=== PATIENT | male | born 1990 | race Hispanic/Latino ===

== ENCOUNTER 2018-01-13 16:41 | Emergency (ER) | payer SELFPAY ==
[2018-01-13 17:08] VITALS: BP 156/86
--- NOTE | 2018-01-13 17:54 | XRay Report ---
FINAL REPORT EXAM: XR ANKLE 3+V RT HISTORY: BRUISING/PAIN/SWELLING R/T INJURY TECHNIQUE: Three views right ankle PRIORS: None. FINDINGS: No fracture is identified. No dislocation seen. Ankle mortise is intact no evidence of joint space widening. There is lateral soft tissue swelling No erosive or degenerative changes are identified. No evidence of joint effusion. IMPRESSION: Lateral soft tissue swelling No acute fracture identified
[2018-01-13] MEDS ORDERED: MOTRIN PO ONE (19:44)
[2018-01-13] MEDS ORDERED: NORCO 5/325 PO ONE (19:44)
--- NOTE | 2018-01-13 19:51 | Emergency Department Report ---
ED Extremity Problem HPI - General Chief complaint: Extremity Injury, Lower Stated complaint: RT ANKLE BROKE? Time Seen by Provider: 01/13/18 19:35 Source: patient Mode of arrival: Ambulatory Limitations: No Limitations - History of Present Illness Initial comments: Patient is a 27-year-old male who jumped off a porch and twisted his right ankle. Patient states he has 10 out 10 pain was in the lateral right ankle. There is significant bruising present. This occurred several hours ago. Patient has been having difficulty ambulating secondary to his injury. Patient denies any other injury at this time. Quality: aching Consistency: constant Improves with: nothing Worsens with: weight bearing - Related Data Previous Rx's Medication Instructions Recorded Last Taken Type HYDROcodone/APAP 5-325 [[place] 1 each PO Q6HR PRN #15 tablet 01/13/18 Unknown Rx 5/325] Ibuprofen [Motrin] 800 mg PO Q8HR PRN #20 tablet 01/13/18 Unknown Rx Allergies Allergy/AdvReac Type Severity Reaction Status Date / Time No Known Allergies Allergy Unverified 01/13/18 17:08 ED Review of Systems ROS: Stated complaint: RT ANKLE BROKE? Other details as noted in HPI Comment: All other systems reviewed and negative ED Past Medical Hx - Past Medical History Previous Medical History?: No - Surgical History Past Surgical History?: Yes Additional Surgical History: LEFT FOREARM - Social History Smoking Status: Current Every Day Smoker Substance Use Type: Alcohol - Medications Home Medications: Home Medications Medication Instructions Recorded Confirmed Last Taken Type HYDROcodone/APAP 5-325 [[place] 1 each PO Q6HR PRN #15 tablet 01/13/18 Unknown Rx 5/325] Ibuprofen [Motrin] 800 mg PO Q8HR PRN #20 tablet 01/13/18 Unknown Rx ED Physical Exam - General Limitations: No Limitations General appearance: alert, in no apparent distress - Head Head exam: Present: atraumatic, normocephalic - Eye Eye exam: Present: normal appearance - ENT ENT exam: Present: mucous membranes moist - Neck Neck exam: Present: normal inspection - Respiratory Respiratory exam: Present: normal lung sounds bilaterally. Absent: respiratory distress - Cardiovascular Cardiovascular Exam: Present: regular rate, normal rhythm. Absent: systolic murmur, diastolic murmur, rubs, gallop - GI/Abdominal GI/Abdominal exam: Present: soft, normal bowel sounds - Rectal Rectal exam: Present: deferred - Extremities Exam Extremities exam: Present: normal inspection, tenderness (he has significant tenderness to the lateral malleolus and the right lower extremity. There is extensive bruising and swelling present. Patient does have palpable dorsalis pedal pulse). Absent: full ROM - Back Exam Back exam: Present: normal inspection - Neurological Exam Neurological exam: Present: alert, oriented X3 - Psychiatric Psychiatric exam: Present: normal affect, normal mood - Skin Skin exam: Present: warm, dry, intact, normal color. Absent: rash ED Course Vital Signs 01/13/18 17:05 Temperature 98 F Pulse Rate 71 Respiratory 20 Rate Blood Pressure 156/86 O2 Sat by Pulse 98 Oximetry ED Medical Decision Making - Radiology Data X-ray of the right ankle shows soft tissue swelling but no fractures present - Medical Decision Making Patient placed in a posterior short leg splint and will be given crutches. Patient is to use rice therapy and follow with orthopedics. Critical care attestation.: If time is entered above; I have spent that time in minutes in the direct care of this critically ill patient, excluding procedure time. ED Disposition Clinical Impression: High ankle sprain of right lower extremity Qualifiers: Encounter type: initial encounter Qualified Code(s): S93.431A - Sprain of tibiofibular ligament of right ankle, initial encounter Disposition: TO HOME OR SELFCARE Is pt being admited?: No Does the pt Need Aspirin: No Condition: Stable Instructions: Ankle Sprain (ED), RICE Therapy (ED) Referrals: RUT KRUSE MD [Staff Physician] - 3-5 Days Time of Disposition: 19:50
== END 2018-01-13 20:32 | disposition home or self-care (01) ==
LOC: ED 16:41
DX: S93.401A Sprain of unspecified ligament of right ankle, initial encounter (principal); F17.200 Nicotine dependence, unspecified, uncomplicated; X50.1XXA Overexertion from prolonged static or awkward postures, initial encounter; Y93.89 Activity, other specified; Y92.89 Other specified places as the place of occurrence of the external cause; Y99.8 Other external cause status
CPT/HCPCS: 99283

== ENCOUNTER 2019-03-26 18:41 | Emergency (ER) | payer SELFPAY | END 2019-03-26 21:00 | disposition left against medical advice (07) | LOC: ED 18:41 | DX: M79.601 Pain in right arm (principal); Z53.21 Procedure and treatment not carried out due to patient leaving prior to being seen by health care provider ==